=== PATIENT | female | born 1980 | race Caucasian/White ===

== ENCOUNTER 2020-06-11 14:36 | Inpatient (IN) | payer MEDICAID, SELFPAY ==
--- NOTE | ~2020-06-11 | MR_ITS ---
EXAMINATION: MR BRAIN WITHOUT AND WITH CONTRAST CLINICAL INFORMATION: Altered mental status. COMPARISON: No relevant prior imaging. TECHNIQUE: Multiplanar MR imaging of the brain was performed without and with contrast. FINDINGS: Postcontrast images reveal no abnormal mass or enhancement within the intracranial compartment. No intracranial mass effect or midline shift. Lateral and third ventricles are normal. No hydrocephalus. Midline structures including the cervicomedullary junction are normal. No acute bone marrow signal changes. There is no acute territorial infarct. No pathological magnetic susceptibility artifact. Intracranial vascular flow voids are maintained. There is no mastoid middle ear effusion. No active paranasal sinus disease. MR/MR head/brain wo/w con IMPRESSION: Normal brain MRI.
[2020-06-11 14:57] VITALS: BP 103/58; PULSE 102; RESP 18; TEMP 36.8; O2SAT 96; BMI 30.9
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
[2020-06-11 15:22] LABS: MANUAL DIFF FLAG NO
[2020-06-11 15:23] LABS: Basophils Percent Auto 0.2 % (0-2); Hematocrit 42.4 % (37-47); Hemoglobin 14.1 g/dl (12.0-16.0); Imm Gran Abs Auto 0.05 X10*3/uL (0.00-0.03); Imm Gran Pct Auto 0.5 % (0.0-0.4); Lymphocytes Absolute Auto 1.4 X10*3/uL (1.2-4.9); Lymphocytes Percent Auto 13.6 % (20-40); Mean Corpuscular HGB Conc 33.3 g/dl (31.0-35.0); Mean Corpuscular Hemoglobin 32.3 pg (27.0-33.0); Mean Platelet Volume 10.1 fL (9.4-12.3); Monocytes Absolute Auto 0.6 X10*3/uL (0.1-1.2); Monocytes Percent Auto 5.2 % (2-11); Neutrophils Absolute Auto 8.5 X10*3/uL (2.0-8.3); Neutrophils Percent Auto 80.5 % (45-73); Platelet Count 218 X10*3/uL (160-400); Red Blood Count 4.37 X10*6/uL (4.20-5.50); Red Cell Distribution Width 13.6 % (11.0-16.0); White Blood Count 10.6 X10*3/uL (4.8-10.8)
[2020-06-11 15:47] LABS: Ethanol < 10 mg/dL
[2020-06-11 15:48] LABS: Alanine Aminotransferase 8 U/L (0-31); Alkaline Phosphatase 57 U/L (39-117); Anion Gap 13 (12-20); Aspartate Amino Transferase 8 U/L (5-31); Bilirubin Total 0.4 mg/dL (0.0-1.0); Blood Urea Nitrogen 7 mg/dL (9-16); Calcium 8.6 mg/dL (8.4-10.2); Carbon Dioxide 26 mmol/L (22-29); Chloride 104 mmol/L (96-108); Creatinine Clr Calc Pharmacy 106.5; Estimated Glomerular Filt Rate > 60; Glucose Random 129 mg/dL (60-115); Potassium 3.4 mmol/L (3.3-5.1); Sodium 140 mmol/L (135-145); Total Protein 6.5 g/dL (6.5-8.0)
[2020-06-11 16:00] VITALS: RESP 18
--- NOTE | 2020-06-11 17:06 | PC.NURSE ---
Spoke with patient's on phone, he reports patient has been throwing out her medications and refusing to take them. Pt's states patient has been telling him she doesn't want to live anymore. [phone] Mike Hernandez, .
[2020-06-11 18:00] VITALS: RESP 18
--- NOTE | 2020-06-11 20:32 | MHC.CARE ---
Addendum entered by Qian Serna LCSW 06/12/20 01:28: N unable to send clinician until morning. Crisis assessment completed by CARE team. Disposition is for inpt psych admission. Pt will be held on a Sect 12a until placement is secured. Original Note: CARE team faxed and called [facility] re: referral for crisis evaluation. No ETA at this time, likely 3rd shift. Awaiting call back from crisis coordinator re: est. time of assessment. Assessment may possibly be via telehealth.
--- NOTE | 2020-06-12 00:48 | PC.NURSE ---
Per Qian from the Care Team, pt is an inpt bedsearch. Pt noncooperative with this RN while trying to complete Med Rec. Med Rec completed with Mike over the phone. Per Mike, pt stopped all other medications bedsides the Levothyroxine and Venlafaxine. Pt refusing VS at this time, pt rolling over away from this RN to sleep. Continue to monitor, sitter at bedside.
[2020-06-12 01:13] VITALS: RESP 16
[2020-06-12 06:00] VITALS: BP 135/79; PULSE 59; RESP 16; O2SAT 94
[2020-06-12 10:11] VITALS: BP 132/68; PULSE 63; RESP 16; TEMP 37.1; O2SAT 95
[2020-06-12 13:53] VITALS: BP 117/68; PULSE 59; RESP 16; O2SAT 95
[2020-06-12 16:50] VITALS: BP 186/99; PULSE 72; TEMP 37
--- NOTE | 2020-06-12 16:53 | MHC.CARE ---
CARE Team spoke to patient in ED Bed Bearden 6, she was unable to engage in a conversation about the plan for inpatient hospitalization, stated I only wanted to shave my head. Offered explanation and opportunity to sign a CV, she would not remove the covers from her head, was crying and swearing. Dr. Hines signed Section 12B, security and ED staff were able to coax patient into a wheelchair for transport to , she remained under blankets and was transported to the unit without issue.
[2020-06-12 19:51] VITALS: BMI 26.8
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
[2020-06-12 21:41] VITALS: BP 130/78; PULSE 60
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
[2020-06-13 06:25] VITALS: BP 105/66; PULSE 57; RESP 16; TEMP 35.9; O2SAT 95
[2020-06-13] MEDS: Levothyroxine Sodium 75 MCG TABLET PO (09:02)
--- NOTE | 2020-06-13 10:35 | PC.NURSE ---
ASKED PT IF SHE WAS A SMOKER, PT REFUSED TO ANSWER. NO NICOTINE REPLACEMENT NEEDED.
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
[2020-06-13] MEDS: risperiDONE 1 MG TABLET PO ×2 (14:40→21:09)
[2020-06-13] MEDS: LORazepam 1 MG TABLET PO (14:40)
[2020-06-13 18:00] VITALS: BP 134/98; PULSE 83; RESP 18; TEMP 36.1
[2020-06-13] MEDS: LORazepam 0.5 MG TABLET PO (21:09)
[2020-06-14 06:10] VITALS: BP 101/59; PULSE 63; RESP 16; TEMP 36.6; O2SAT 97
[2020-06-14] MEDS: risperiDONE 1 MG TABLET PO ×2 (08:44→21:14)
[2020-06-14] MEDS: Levothyroxine Sodium 75 MCG TABLET PO (08:44)
[2020-06-14] MEDS: LORazepam 0.5 MG TABLET PO ×2 (08:44→21:14)
[2020-06-14 10:53] LABS: Glucose Urine UA NEG (NEG); Leukocyte Esterase Urine NEG (NEG); Nitrite Urine NEG (NEG); Specific Gravity - Urine 1.025 (1.005-1.025); Urine Blood TRACE (NEG); Urine Ketones >=80 MG/DL (NEG); Urine Protein NEG (NEG-TRACE)
[2020-06-14 10:55] LABS: UPreg QC Valid YES; Urine Pregnancy NEGATIVE (NEGATIVE)
[2020-06-14 11:00] LABS: Appearance Urine HAZY; Color Urine YELLOW
[2020-06-14 11:11] LABS: Mucus Urine 2+ /LPF; RBC Urine 0-2 /HPF (0); Squamous Epithelial Cell Urine 2+ /LPF; WBC Urine 0-2 /HPF (0-4)
[2020-06-14 11:14] LABS: Amphetamine Screen Urine Not Detected (Not Detect); Barbiturates, Urine Not Detected (Not Detect); Benzodiazepines Screen Urine Not Detected (Not Detect); Cannabinoid Screen Urine POSITIVE (Not Detect); Cocaine Screen Urine Not Detected (Not Detect); Opiate Screen Urine Not Detected (Not Detect); Phencyclidine Screen Urine Not Detected (Not Detect)
--- NOTE | 2020-06-14 13:56 | HO.PSYCHPN ---
Subjective Subjective Date of Service: 06/15/20 Reason For Visit: SI Subjective Notes: Section 12B Interim History: Pt presents less guarded but continues to report that she thinks there are cameras and she may be being monitored. She reports hearing less voices when asked about what they say she does not respond and appears somewhat guarded. She reports medication may be helpful for anxiety. Collateral information from [employer] regarding remicade causing psychosis- pt last dose was august 2019. Pt had LP, MRI at [facility] in February 2020- LP included paraneoplastic panel/other immune related conditions which were all negative. Dr. Fishman recommeded repeat MRI, repeat inflammatory markers such as ESR, CRP as remicade can cause in rare cases demyelination. Medication Compliance: Intermittent Side effects from medications: No Attending Groups: No Review of Systems Review of Systems Constitutional: No Weight loss, No Fever, No Chills, No Night Sweats, No Fatigue, No Malaise ENT/Mouth: No Hearing loss, No Ear Pain, No Nasal Congestion, No Sinus Pain, No Hoarseness, No sore throat, No Rhinorrhea, No Swallowing Difficulty Eyes: No Eye Pain, No Swelling, No Redness, No Foreign Body, No Discharge, No Vision Changes Cardiovascular: No Chest Pain, No SOB, No Dyspnea on Exertion, No Orthopnea, No Edema, No Palpitations Respiratory: No Cough, No Sputum, No Wheezing, No Smoke Exposure, No Dyspnea Gastrointestinal: No Nausea, No Vomiting, No Diarrhea, No Constipation, No abdominal Pain, No Hematochezia, No Melena Genitourinary: no irregular bleeding, No Dysuria, No Urinary Frequency, No Hematuria, No Urinary Incontinence, No Urgency, No Flank Pain, No Urinary Flow Changes, No Hesitancy Musculoskeletal: No joint pain, No Myalgias, No Joint Swelling Skin: No Skin Lesions, No rash Neuro: No Weakness, No Numbness, No Paresthesias, No Loss of Consciousness, No Dizziness, No Headache Psych: As noted per HPI Heme/Lymph: No Bruising, No Bleeding,No Lymphadenopathy Endocrine: No Polyuria, No Polydipsia, No Temperature Intolerance Yes Unobtainable due to mental status Mental Status Exam Mental Status Exam Narrative: Appearance: wearing hospital gown, disheveled, covered faced with blanket Behavior: uncooperative, guarded Psychomotor: retardation noted Speech: unable to assess TP: unable to assess TC: reports paranoia related to cameras, reported SI Mood: tired Affect:guarded SI:passive HI:none AH/VH:reports hearing voices Delusions:paranoid delusions related to thinking that there are cameras, people following her Insight/judgment:impaired x 2. Memory/cog: alert, unable to assess orientation. impaired secondary to psychiatric symptoms. Diagnostics Vital Signs (24Hr): Vital Signs - 24 hr 06/14/20 16:37 06/15/20 06:10 Temperature 98.4 F 97.7 F Pulse Rate 119 H 80 Respiratory Rate 16 16 Blood Pressure 120/79 102/61 Pulse Oximetry 93 92 Body Mass Index 25.5 Labs Results: 06/11/20 15:15 06/11/20 15:15 Labs: Laboratory Results - last 48 hr 06/14/20 06/14/20 06/14/20 10:35 10:35 10:35 ESR Estimat Average Glucose Hemoglobin A1c % Triglycerides Cholesterol LDL Cholesterol, Calc HDL Cholesterol Vitamin B12 Folate TSH Free T4 Urine Color YELLOW Urine Appearance HAZY Urine pH 6.0 Ur Specific [place] 1.025 Urine Protein NEG Urine Glucose (UA) NEG Urine Ketones >=80 Urine Blood TRACE Urine Nitrite NEG Ur Leukocyte Esterase NEG Urine RBC 0-2 Urine WBC 0-2 Ur Squamous Epith Cells 2+ Urine Bacteria NONE Urine Mucus 2+ Urine Test NEGATIVE Urine Opiates Screen Not Detected Ur Barbiturates Screen Not Detected Ur Phencyclidine Scrn Not Detected Ur Amphetamines Screen Not Detected U Benzodiazepines Scrn Not Detected Urine Cocaine Screen Not Detected U Marijuana (THC) Screen POSITIVE H 06/15/20 06/15/20 06/15/20 08:04 08:04 08:04 ESR Estimat Average Glucose 100 Hemoglobin A1c % 5.1 Triglycerides 141 Cholesterol 312 LDL Cholesterol, Calc 243 HDL Cholesterol 41 Vitamin B12 263 Folate 8.1 TSH 97.80 H Free T4 0.64 L Urine Color Urine Appearance Urine pH Ur Specific [place] Urine Protein Urine Glucose (UA) Urine Ketones Urine Blood Urine Nitrite Ur Leukocyte Esterase Urine RBC Urine WBC Ur Squamous Epith Cells Urine Bacteria Urine Mucus Urine Test Urine Opiates Screen Ur Barbiturates Screen Ur Phencyclidine Scrn Ur Amphetamines Screen U Benzodiazepines Scrn Urine Cocaine Screen U Marijuana (THC) Screen 06/15/20 10:51 ESR 18 Estimat Average Glucose Hemoglobin A1c % Triglycerides Cholesterol LDL Cholesterol, Calc HDL Cholesterol Vitamin B12 Folate TSH Free T4 Urine Color Urine Appearance Urine pH Ur Specific [place] Urine Protein Urine Glucose (UA) Urine Ketones Urine Blood Urine Nitrite Ur Leukocyte Esterase Urine RBC Urine WBC Ur Squamous Epith Cells Urine Bacteria Urine Mucus Urine Test Urine Opiates Screen Ur Barbiturates Screen Ur Phencyclidine Scrn Ur Amphetamines Screen U Benzodiazepines Scrn Urine Cocaine Screen U Marijuana (THC) Screen Imaging Radiology Impressions: ITS Impressions Brain MRI 06/14/20 20:15 IMPRESSION: Normal brain MRI. Medications Medications Current Medications Generic Name Dose Route Start Last Admin Trade Name Freq PRN Reason Stop Dose Admin Acetaminophen 650 mg 06/12/20 14:40 Acetaminophen 325 Mg Tablet PO Q6H PRN Headache/Pain Mild Scale (1-3) Al Hydroxide/Mg Hydroxide 30 ml 06/12/20 14:40 Magnesium Hydrox/Alum Hydrox 30 Ml Oral.Susp PO Q6H PRN Heartburn/Nausea Hydroxyzine HCl 25 mg 06/12/20 14:40 Hydroxyzine Hcl 25 Mg Tablet PO BEDTIME PRN Anxiety Levothyroxine Sodium 75 mcg 06/13/20 09:00 06/15/20 09:12 Levothyroxine Sodium 75 Mcg Tablet PO 75 mcg DAILY SOTERO Administration Lorazepam 1 mg 06/13/20 14:26 06/13/20 14:40 Lorazepam 1 Mg Tablet PO 1 mg Q6H PRN Administration Anxiety Lorazepam 0.5 mg 06/13/20 21:00 06/15/20 09:12 Lorazepam 0.5 Mg Tablet PO 0.5 mg BID SOTERO Administration Magnesium Hydroxide 30 ml 06/12/20 14:40 Milk Of Magnesia 30 Ml Oral.Susp PO DAILY PRN Constipation Risperidone 1 mg 06/13/20 14:25 06/15/20 09:12 Risperidone 1 Mg Tablet PO 1 mg BID SOTERO Administration Trazodone HCl 50 mg 06/12/20 14:40 Trazodone Hcl 50 Mg Tablet PO BEDTIME PRN Insomnia Allergies Allergies Allergy/AdvReac Type Severity Reaction Status Date / Time No Known Allergies Allergy Verified 06/11/20 15:00 Assessment & Plan Assessment & Plan (1) Psychosis: Status: Acute Code(s): F29 - Unspecified psychosis not due to a substance or known physiological condition Assessment and Plan: Mrs. Hernandez is a 40 year-old woman with no prior hx of psychosis, presenting increasingly more paranoid, disorganized, agitated in past weeks. Will rule out medical causes, although note that pt had extensive work up at [facility] in February 2020 including LP- CSF testing for paraneoplastic syndromes and other immune related conditions, MRI (unremarkable). Pt has been on remicade (TNF-alpha aman) since last year, unclear when her last dose was and there have been cases of psychosis related to this medication even months after last dose. Will coordinate care with pt's OP Rheumathologist and PCP. 1. continue risperidone 1mg po BID 2. Ativan 1mg po qhs. Greater than 50% of the session was spent on counseling and/or coordination of care Reason for contiued inpatient stay Substantial Risk for: harm to self and inability to function
[2020-06-14 16:37] VITALS: BP 120/79; PULSE 119; RESP 16; TEMP 36.9; O2SAT 93
[2020-06-15 06:10] VITALS: BP 102/61; PULSE 80; RESP 16; TEMP 36.5; O2SAT 92
[2020-06-15 07:00] VITALS: BMI 25.5
[2020-06-15 08:30] LABS: Estimated Average Glucose 100 mg/dL; Hemoglobin A1c % 5.1 %
[2020-06-15 08:49] LABS: Cholesterol 312 mg/dL; HDL Cholesterol 41 mg/dL; LDL Cholesterol Calculated 243 mg/dl; Triglycerides 141 mg/dL
[2020-06-15] MEDS: risperiDONE 1 MG TABLET PO (09:12)
[2020-06-15] MEDS: LORazepam 0.5 MG TABLET PO ×2 (09:12→20:26)
[2020-06-15] MEDS: Levothyroxine Sodium 75 MCG TABLET PO (09:12)
[2020-06-15 09:23] LABS: Folate 8.1 ng/mL (> or = 4.0); Vitamin B12 263 pg/mL (200-900)
[2020-06-15 09:41] LABS: Free T4 (Free Thyroxine) 0.64 ng/dL (0.71-1.85)
[2020-06-15 12:27] LABS: Erythrocyte Sedimentation Rate 18 MM/HR (0-20)
--- NOTE | 2020-06-15 14:01 | P.PNPSI_ITS ---
Subjective Subjective Date of Service: 06/15/20 Reason For Visit: SI Interim History: Pt continues to present as guarded. Slightly less paranoid but significant suspiciousness noted. Pt offered to sign CV but declined. She continues to report AH. She intermittently take medication for hypothyroid, which shows that TSH is elevated as pt has refused to take it. SHe denied SI/HI. However, she was very tearful, unable to explain this chief underwriter reason for tearfulness and she walked out of room. Collateral information from [employer] Out [employer] regarding remicade causing psychosis- pt last dose was august 2019. Pt had LP, MRI at [facility] in February 2020- LP included paraneoplastic panel/other immune related conditions which were all negative. Dr. Fishman recommeded repeat MRI, repeat inflammatory markers such as ESR, CRP as remicade can cause in rare cases demyelination. Review of Systems Review of Systems Constitutional: No Weight loss, No Fever, No Chills, No Night Sweats, No Fatigue, No Malaise ENT/Mouth: No Hearing loss, No Ear Pain, No Nasal Congestion, No Sinus Pain, No Hoarseness, No sore throat, No Rhinorrhea, No Swallowing Difficulty Eyes: No Eye Pain, No Swelling, No Redness, No Foreign Body, No Discharge, No Vision Changes Cardiovascular: No Chest Pain, No SOB, No Dyspnea on Exertion, No Orthopnea, No Edema, No Palpitations Respiratory: No Cough, No Sputum, No Wheezing, No Smoke Exposure, No Dyspnea Gastrointestinal: No Nausea, No Vomiting, No Diarrhea, No Constipation, No abdominal Pain, No Hematochezia, No Melena Genitourinary: no irregular bleeding, No Dysuria, No Urinary Frequency, No Hematuria, No Urinary Incontinence, No Urgency, No Flank Pain, No Urinary Flow Changes, No Hesitancy Musculoskeletal: No joint pain, No Myalgias, No Joint Swelling Skin: No Skin Lesions, No rash Neuro: No Weakness, No Numbness, No Paresthesias, No Loss of Consciousness, No Dizziness, No Headache Psych: As noted per HPI Heme/Lymph: No Bruising, No Bleeding,No Lymphadenopathy Endocrine: No Polyuria, No Polydipsia, No Temperature Intolerance Yes Unobtainable due to mental status Mental Status Exam Mental Status Exam Narrative: Appearance: wearing hospital gown, disheveled, covered faced with blanket Behavior: uncooperative, guarded Psychomotor: retardation noted Speech: unable to assess TP: unable to assess TC: reports paranoia related to cameras, reported SI Mood: tired Affect:guarded SI:passive HI:none AH/VH:reports hearing voices Delusions:paranoid delusions related to thinking that there are cameras, people following her Insight/judgment:impaired x 2. Memory/cog: alert, unable to assess orientation. impaired secondary to psychiatric symptoms. Diagnostics Vital Signs (24Hr): Vital Signs - 24 hr 06/14/20 16:37 06/15/20 06:10 Temperature 98.4 F 97.7 F Pulse Rate 119 H 80 Respiratory Rate 16 16 Blood Pressure 120/79 102/61 Pulse Oximetry 93 92 Body Mass Index 25.5 Labs Results: 06/11/20 15:15 06/11/20 15:15 Labs: Laboratory Results - last 48 hr 06/14/20 06/14/20 06/14/20 10:35 10:35 10:35 ESR Estimat Average Glucose Hemoglobin A1c % Triglycerides Cholesterol LDL Cholesterol, Calc HDL Cholesterol Vitamin B12 Folate TSH Free T4 Urine Color YELLOW Urine Appearance HAZY Urine pH 6.0 Ur Specific [place] 1.025 Urine Protein NEG Urine Glucose (UA) NEG Urine Ketones >=80 Urine Blood TRACE Urine Nitrite NEG Ur Leukocyte Esterase NEG Urine RBC 0-2 Urine WBC 0-2 Ur Squamous Epith Cells 2+ Urine Bacteria NONE Urine Mucus 2+ Urine Test NEGATIVE Urine Opiates Screen Not Detected Ur Barbiturates Screen Not Detected Ur Phencyclidine Scrn Not Detected Ur Amphetamines Screen Not Detected U Benzodiazepines Scrn Not Detected Urine Cocaine Screen Not Detected U Marijuana (THC) Screen POSITIVE H 06/15/20 06/15/20 06/15/20 08:04 08:04 08:04 ESR Estimat Average Glucose 100 Hemoglobin A1c % 5.1 Triglycerides 141 Cholesterol 312 LDL Cholesterol, Calc 243 HDL Cholesterol 41 Vitamin B12 263 Folate 8.1 TSH 97.80 H Free T4 0.64 L Urine Color Urine Appearance Urine pH Ur Specific [place] Urine Protein Urine Glucose (UA) Urine Ketones Urine Blood Urine Nitrite Ur Leukocyte Esterase Urine RBC Urine WBC Ur Squamous Epith Cells Urine Bacteria Urine Mucus Urine Test Urine Opiates Screen Ur Barbiturates Screen Ur Phencyclidine Scrn Ur Amphetamines Screen U Benzodiazepines Scrn Urine Cocaine Screen U Marijuana (THC) Screen 06/15/20 10:51 ESR 18 Estimat Average Glucose Hemoglobin A1c % Triglycerides Cholesterol LDL Cholesterol, Calc HDL Cholesterol Vitamin B12 Folate TSH Free T4 Urine Color Urine Appearance Urine pH Ur Specific [place] Urine Protein Urine Glucose (UA) Urine Ketones Urine Blood Urine Nitrite Ur Leukocyte Esterase Urine RBC Urine WBC Ur Squamous Epith Cells Urine Bacteria Urine Mucus Urine Test Urine Opiates Screen Ur Barbiturates Screen Ur Phencyclidine Scrn Ur Amphetamines Screen U Benzodiazepines Scrn Urine Cocaine Screen U Marijuana (THC) Screen Imaging Radiology Impressions: ITS Impressions Brain MRI 06/14/20 20:15 IMPRESSION: Normal brain MRI. Medications Medications Current Medications Generic Name Dose Route Start Last Admin Trade Name Freq PRN Reason Stop Dose Admin Acetaminophen 650 mg 06/12/20 14:40 Acetaminophen 325 Mg Tablet PO Q6H PRN Headache/Pain Mild Scale (1-3) Al Hydroxide/Mg Hydroxide 30 ml 06/12/20 14:40 Magnesium Hydrox/Alum Hydrox 30 Ml Oral.Susp PO Q6H PRN Heartburn/Nausea Hydroxyzine HCl 25 mg 06/12/20 14:40 Hydroxyzine Hcl 25 Mg Tablet PO BEDTIME PRN Anxiety Levothyroxine Sodium 75 mcg 06/13/20 09:00 06/15/20 09:12 Levothyroxine Sodium 75 Mcg Tablet PO 75 mcg DAILY SOTERO Administration Lorazepam 1 mg 06/13/20 14:26 06/13/20 14:40 Lorazepam 1 Mg Tablet PO 1 mg Q6H PRN Administration Anxiety Lorazepam 0.5 mg 06/13/20 21:00 06/15/20 09:12 Lorazepam 0.5 Mg Tablet PO 0.5 mg BID SOTERO Administration Magnesium Hydroxide 30 ml 06/12/20 14:40 Milk Of Magnesia 30 Ml Oral.Susp PO DAILY PRN Constipation Risperidone 1 mg 06/13/20 14:25 06/15/20 09:12 Risperidone 1 Mg Tablet PO 1 mg BID SOTERO Administration Trazodone HCl 50 mg 06/12/20 14:40 Trazodone Hcl 50 Mg Tablet PO BEDTIME PRN Insomnia Allergies Allergies Allergy/AdvReac Type Severity Reaction Status Date / Time No Known Allergies Allergy Verified 06/11/20 15:00 Assessment & Plan Assessment & Plan (1) Psychosis: Status: Acute Code(s): F29 - Unspecified psychosis not due to a substance or known physiological condition Assessment and Plan: Mrs. Hernandez is a 40 year-old woman with no prior hx of psychosis, present ing increasingly more paranoid, disorganized, agitated in past weeks. Will rule out medical causes, although note that pt had extensive work up at [facility] in February 2020 including LP- CSF testing for paraneoplastic syndromes and other immune related conditions, MRI (unremarkable). Pt has been on remicade (TNF-alpha aman) since last year, unclear when her last dose was and there have been cases of psychosis related to this medication even months after last dose. Will coordinate care with pt's OP Rheumathologist and PCP. 1. continue risperidone 1mg po BID 2. Ativan 1mg po qhs. Greater than 50% of the session was spent on counseling and/or coordination of care Reason for contiued inpatient stay Substantial Risk for: inability to function
[2020-06-15 18:38] VITALS: BP 122/77; PULSE 82; TEMP 36.8
[2020-06-15] MEDS: risperiDONE 2 MG TABLET PO (20:26)
[2020-06-16 06:35] VITALS: BP 85/50; PULSE 65; RESP 16; TEMP 36.4; O2SAT 93
[2020-06-16] MEDS: Levothyroxine Sodium 75 MCG TABLET PO (08:42)
[2020-06-16] MEDS: LORazepam 0.5 MG TABLET PO ×2 (08:42→20:14)
[2020-06-16] MEDS: risperiDONE 2 MG TABLET PO ×2 (08:42→20:14)
[2020-06-16 10:18] VITALS: BP 80/52; PULSE 77
--- NOTE | 2020-06-16 13:40 | P.CNNE_ITS ---
History of Present Illness Data of Consult Service Date: 06/16/20 Primary Care Provider: Unknown Physician HPI Reason for consult: Mental status changes, depression and hallucinations with some psychotic fe This is a 40-year-old woman with the psychiatric admission about 23 years ago with depression, who was recently admitted with psychosis to [facility] and had a complete turn neurological workup including a normal MRI lumbar puncture an autoimmune panel. I was asked to evaluate her because of her admission for depression and mental changes again.She was diagnosed with hypothyroidism in her early 20s and claims to be taking a medication properly, however, her T4 levels are very very low and her TSH is extremely elevated. Review of Systems Eyes: Eyes: Reports no additional eye complaints ENT: Reports system reviewed and no additional complaints, except as documented and Reports Normal hearing present Cardiovascular: Cardiovascular: Reports no additional cardiovascular complaints Respiratory: Respiratory: Reports no additional respiratory complaints Gastrointestinal: Gastrointestinal: Reports no additional gastrointestinal complaints Musculoskeletal: Musculoskeletal: Reports no additional musculoskeletal complaints Integumentary/Breasts: Skin/Breast: Reports system reviewed and no additional complaints, except as docu Neurologic: Reports as per HPI and Reports Normal hearing present Psychiatric: Psychiatric: Reports as per HPI Endocrine: Endocrine: Reports no additional endocrine complaints Hematologic/Lymphatic: Hematologic/Lymphatic: Reports no additional hematologic/lymphatic complaints Allergic/Immunologic: Allergic/Immunologic: Reports no additional allergic/immunologic complaints [facility] Past Medical History Medical History (Updated 06/16/20 @ 13:44 by Raymond Quezada MD) Depression Hypothyroidism Social History Social History Household Members: Spouse and Family Housing: House Unable to assess alcohol history related to: Refusing to respond Alcohol intake: unknown Smoking Status: Former smoker Smoked in Last 30 Days: No Use of substances other than those prescribed or required for medical reasons: Unknown Currently Displaying Signs/Symptoms of Drug Intoxication Withdrawal: No Have you been hit, kicked, punched, or otherwise hurt by someone within the past year? If so, by whom?: No Spiritual Healthcare Practices: unknown, patient would not answer Nondenominational Healthcare Practices: unknown, patient would not answer Cultural Healthcare Practices: unknown, patient would not answer Advance Directives: No Advance Directives Information Provided: Yes Advance Directives on File: No Do you have thoughts of harming others: None Do you have a plan to hurt others: No Plan Recently lost weight without trying: Unsure service: No Sexual orientation: Straight/Heterosexual Meds Allergies Allergy/AdvReac Type Severity Reaction Status Date / Time No Known Allergies Allergy Verified 06/11/20 15:00 Active Medications: Current Medications Generic Name Dose Route Start Last Admin Trade Name Freq PRN Reason Stop Dose Admin Acetaminophen 650 mg 06/12/20 14:40 Acetaminophen 325 Mg Tablet PO Q6H PRN Headache/Pain Mild Scale (1-3) Al Hydroxide/Mg Hydroxide 30 ml 06/12/20 14:40 Magnesium Hydrox/Alum Hydrox 30 Ml Oral.Susp PO Q6H PRN Heartburn/Nausea Hydroxyzine HCl 25 mg 06/12/20 14:40 Hydroxyzine Hcl 25 Mg Tablet PO BEDTIME PRN Anxiety Levothyroxine Sodium 75 mcg 06/13/20 09:00 06/16/20 08:42 Levothyroxine Sodium 75 Mcg Tablet PO 75 mcg DAILY SOTERO Administration Lorazepam 1 mg 06/13/20 14:26 06/13/20 14:40 Lorazepam 1 Mg Tablet PO 1 mg Q6H PRN Administration Anxiety Lorazepam 0.5 mg 06/13/20 21:00 06/16/20 08:42 Lorazepam 0.5 Mg Tablet PO 0.5 mg BID SOTERO Administration Magnesium Hydroxide 30 ml 06/12/20 14:40 Milk Of Magnesia 30 Ml Oral.Susp PO DAILY PRN Constipation Risperidone 2 mg 06/15/20 21:00 06/16/20 08:42 Risperidone 2 Mg Tablet PO 2 mg BID SOTERO Administration Trazodone HCl 50 mg 06/12/20 14:40 Trazodone Hcl 50 Mg Tablet PO BEDTIME PRN Insomnia Home Medications Medication Instructions Recorded Confirmed Last Taken Type levothyroxine 75 mcg PO DAILY 06/12/20 06/12/20 06/11/20 08:00 History venlafaxine 225 mg PO DAILY 06/12/20 06/12/20 Unknown History Physical Exam Vital Signs: Vital Signs: Last Vital Signs Temp 97.6 F 06/16/20 06:35 Pulse 77 06/16/20 10:18 Resp 16 06/16/20 06:35 BP 80/52 L 06/16/20 10:18 Pulse Ox 93 06/16/20 06:35 Body Mass Index 25.5 Const: General: cooperative, comfortable, no acute distress, well developed, alert and awake Nutritional Appearance: well nourished Orientation/consciousness: oriented to person, oriented to place and oriented to time Limitations: no limitations HENMT: Head: Yes normal to inspection, Yes normocephalic and Yes atraumatic Ears: hearing grossly normal bilaterally General nose exam: Normal external nose present Face and sinus: Yes normal facial exam Mouth: Normal oral and palatal mucosa present Eyes: General: appearance normal, both eyes and all related structures Visual New: normal visual new by confrontation Alignment and Position: alignment normal Periorbital: periorbital findings normal Eyelids: Yes eyelids normal Conjunctivae: conjunctivae normal Sclerae: sclerae normal Corneas: corneas normal Pupils: Equal, round and reactive pupils present and Pupil accommodation reflex normal EOM: EOMs intact bilaterally Direct Ophthalmoscopy: normal light reflex Neck: Neck: Yes normal visual inspection, Yes full ROM and Yes no meningeal si gns Thyroid: Thyroid normal Carotids: normal carotid upstroke and bounding pulses Chest: Chest palpation & inspection: normal inspection of the chest Resp: Effort & Inspection: normal respiratory effort Auscultation: clear to auscultation bilaterally Cardio: Rate: regular rate Rhythm: regular rhythm Heart sounds: S1 normal heart sound present and S2 normal heart sound present Peripheral pulses: Peripheral pulses 2+ throughout GI: Inspection: Yes normal to inspection Percussion: Yes normal to percussion Auscultation: normal bowel sounds Rectal Exam - Female: deferred Back/Spine/Pelvis: Cervical Spine: normal cervical lordosis and cervical ROM normal Thoracic/Lumbar Spine: thoracic and lumbar spine normal to inspection Skin: General skin exam: no rashes or lesions noted Neuro: General: oriented to person, oriented to place, oriented to time, gait normal, tone normal, moves all extremities, Normal light touch and pain sensation, no meningeal signs, no focal motor deficits, CN's II-XI intact b ilaterally, normal sensation to monofilament and deep tendon reflexes 2+ bilaterally Cranial nerves: Yes CN's II-XII intact bilaterally, Yes Equal, round and reactive pupils present, Yes Bilaterally intact EOM present, Yes Nystagmus not present, Yes Normal facial strength present, Yes Midline tongue present, Yes Normal gag reflex present, Yes Symmetric palate elevation present, Yes Normal hearing present and Yes Ability to bilaterally rotate head present Cognition (Neuro): normal cognition Speech: Other speech findings present (Neuro) Gait exam (Neuro): Normal gait present Motor exam (neuro): 5/5 motor strength present throughout, Pronator motor function not present, no tremor noted, no asterixis, Motor fasciculations not present, Normal motor muscle tone present throughout and Motor abnormalities not present Sensory Exam: Bilaterally intact graphesthesia Deep tendon reflexes (DTR's): Right triceps reflex intensity grade: 2+, Left triceps reflex intensity grade: 2+, Rt Biceps (C5, C6): 2+, Left biceps reflex intensity grade: 2+, Right brachioradia lis reflex intensity grade: 2+, Left brachioradialis reflex intensity grade: 2+, Right patellar reflex intensity grade: 2+, Left patellar reflex intensity grade: 2+, Right ankle reflex intensity grade: 2+ and Left ankle reflex intensity grade: 2+ Plantar Reflex Responses: downgoing: right, left and bilateral Coordination: [id number] test normal, [id number] test normal, tandem gait normal and Romberg test negative Pupils: Normal pupillary teja ctivity/response: bilateral Extrem: General: Yes normal to inspection, Yes normal exam except as noted and Yes no pedal edema Psych: Appearance: grossly normal Mental Status: mental status grossly normal Speech and movement: Normal speech and movement present and Clear speech present Affect: normal affect Attitude: cooperative Thought process: Normal thought process present Results Labs CBC & Chem 7: 06/11/20 15:15 06/11/20 15:15 Assessment and Plan (1) Hypothyroidism: Problem details: 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 No evidence of primary neurological process with completely normal exam and followup MRI as well as previous workup at [facility] 2 months ago Status: Acute I would recommend checking her TPOantibodies for Carter's disease. I would increase her levothyroxine 200 ?g a day and do a followup TSH and T4 in 6 weeks and adjust the dose accordingly. No further neurological workup is necessary (2) Depression: Status: Acute As being treated. (3) Psychosis: Problem details: Probably related to hypothyroidism Status: Acute Treatment of hypothyroidism
[2020-06-16 13:56] LABS: CRP High Sensitivity 7.1 mg/L
--- NOTE | 2020-06-16 15:00 | P.PNPSI_ITS ---
Subjective Subjective Date of Service: 06/16/20 Reason For Visit: SI Interim History: Pt continues to present as guarded and paranoid. She reports less AH, asking to be discharged soon, with limited insight into need for treatment. She reports sleeping fairly well. She has been visible in the unit. She denies SI/HI. She reports eating well. She appears not fully forthcoming in terms of paranoid symptoms. Review of Systems Review of Systems Constitutional: No Weight loss, No Fever, No Chills, No Night Sweats, No Fatigue, No Malaise ENT/Mouth: No Hearing loss, No Ear Pain, No Nasal Congestion, No Sinus Pain, No Hoarseness, No sore throat, No Rhinorrhea, No Swallowing Difficulty Eyes: No Eye Pain, No Swelling, No Redness, No Foreign Body, No Discharge, No Vision Changes Cardiovascular: No Chest Pain, No SOB, No Dyspnea on Exertion, No Orthopnea, No Edema, No Palpitations Respiratory: No Cough, No Sputum, No Wheezing, No Smoke Exposure, No Dyspnea Gastrointestinal: No Nausea, No Vomiting, No Diarrhea, No Constipation, No abdominal Pain, No Hematochezia, No Melena Genitourinary: no irregular bleeding, No Dysuria, No Urinary Frequency, No Hematuria, No Urinary Incontinence, No Urgency, No Flank Pain, No Urinary Flow Changes, No Hesitancy Musculoskeletal: No joint pain, No Myalgias, No Joint Swelling Skin: No Skin Lesions, No rash Neuro: No Weakness, No Numbness, No Paresthesias, No Loss of Consciousness, No Dizziness, No Headache Psych: As noted per HPI Heme/Lymph: No Bruising, No Bleeding,No Lymphadenopathy Endocrine: No Polyuria, No Polydipsia, No Temperature Intolerance Yes Unobtainable due to mental status Eyes: Reports no additional eye complaints Reports system reviewed and no additional complaints, except as documented and Reports Normal hearing present Cardiovascular: Reports no additional cardiovascular complaints Respiratory: Reports no additional respiratory complaints Gastrointestinal: Reports no additional gastrointestinal complaints Musculoskeletal: Reports no additional musculoskeletal complaints Skin/Breast: Reports system reviewed and no additional complaints, except as docu Reports as per HPI and Reports Normal hearing present Psychiatric: Reports as per HPI Endocrine: Reports no additional endocrine complaints Hematologic/Lymphatic: Reports no additional hematologic/lymphatic complaints Allergic/Immunologic: Reports no additional allergic/immunologic complaints Mental Status Exam Mental Status Exam Narrative: Appearance: wearing hospital gown, disheveled, covered faced with blanket Behavior: uncooperative, guarded Psychomotor: retardation noted Speech: unable to assess TP: unable to assess TC: reports paranoia related to cameras, reported SI Mood: tired Affect:guarded SI:passive HI:none AH/VH:reports hearing voices Delusions:paranoid delusions related to thinking that there are cameras, people following her Insight/judgment:impaired x 2. Memory/cog: alert, unable to assess orientation. impaired secondary to psychiatric symptoms. Diagnostics Vital Signs (24Hr): Vital Signs - 24 hr 06/15/20 18:38 06/16/20 06:35 06/16/20 10:18 Temperature 98.3 F 97.6 F Pulse Rate 82 65 77 Respiratory Rate 16 Blood Pressure 122/77 85/50 L 80/52 L Pulse Oximetry 93 Body Mass Index 25.5 Labs Results: 06/11/20 15:15 06/11/20 15:15 Labs: Laboratory Results - last 48 hr 06/15/20 06/15/20 06/15/20 08:04 08:04 08:04 ESR Estimat Average Glucose 100 Hemoglobin A1c % 5.1 C-React Prot High Sens Triglycerides 141 Cholesterol 312 LDL Cholesterol, Calc 243 HDL Cholesterol 41 Vitamin B12 263 Folate 8.1 TSH 97.80 H Free T4 0.64 L 06/15/20 06/15/20 10:51 10:51 ESR 18 Estimat Average Glucose Hemoglobin A1c % C-React Prot High Sens 7.1 H Triglycerides Cholesterol LDL Cholesterol, Calc HDL Cholesterol Vitamin B12 Folate TSH Free T4 Imaging Radiology Impressions: ITS Impressions Brain MRI 06/14/20 20:15 IMPRESSION: Normal brain MRI. Medications Medications Current Medications Generic Name Dose Route Start Last Admin Trade Name Freq PRN Reason Stop Dose Admin Acetaminophen 650 mg 06/12/20 14:40 Acetaminophen 325 Mg Tablet PO Q6H PRN Headache/Pain Mild Scale (1-3) Al Hydroxide/Mg Hydroxide 30 ml 06/12/20 14:40 Magnesium Hydrox/Alum Hydrox 30 Ml Oral.Susp PO Q6H PRN Heartburn/Nausea Hydroxyzine HCl 25 mg 06/12/20 14:40 Hydroxyzine Hcl 25 Mg Tablet PO BEDTIME PRN Anxiety Levothyroxine Sodium 100 mcg 06/17/20 09:00 Levothyroxine Sodium 75 Mcg Tablet PO DAILY SOTERO Lorazepam 1 mg 06/13/20 14:26 06/13/20 14:40 Lorazepam 1 Mg Tablet PO 1 mg Q6H PRN Administration Anxiety Lorazepam 0.5 mg 06/13/20 21:00 06/16/20 08:42 Lorazepam 0.5 Mg Tablet PO 0.5 mg BID SOTERO Administration Magnesium Hydroxide 30 ml 06/12/20 14:40 Milk Of Magnesia 30 Ml Oral.Susp PO DAILY PRN Constipation Risperidone 2 mg 06/15/20 21:00 06/16/20 08:42 Risperidone 2 Mg Tablet PO 2 mg BID SOTERO Administration Trazodone HCl 50 mg 06/12/20 14:40 Trazodone Hcl 50 Mg Tablet PO BEDTIME PRN Insomnia Allergies Allergies Allergy/AdvReac Type Severity Reaction Status Date / Time No Known Allergies Allergy Verified 06/11/20 15:00 Assessment & Plan Assessment & Plan (1) Hypothyroidism: Status: Acute Code(s): E03.9 - Hypothyroidism, unspecified Assessment and Plan: I would recommend checking her TPOantibodies for Carter's disease. I would i ncrease her levothyroxine 200 ?g a day and do a followup TSH and T4 in 6 weeks and adjust the dose accordingly. No further neurological workup is necessary (2) Depression: Status: Acute Code(s): F32.9 - Major depressive disorder, single episode, unspecified Assessment and Plan: As being treated. (3) Psychosis: Status: Acute Code(s): F29 - Unspecified psychosis not due to a substance or known physiological condition Assessment and Plan: Treatment of hypothyroidism Greater than 50% of the session was spent on counseling and/or coordination of care Reason for contiued inpatient stay Substantial Risk for: inability to function
[2020-06-16 18:00] VITALS: BP 115/78; PULSE 80; TEMP 36.1
[2020-06-17 06:00] VITALS: BP 100/65; PULSE 62; RESP 18; TEMP 36.4; O2SAT 96
[2020-06-17] MEDS: Levothyroxine Sodium 75 MCG TABLET 100 MCG PO (09:46)
[2020-06-17] MEDS: risperiDONE 2 MG TABLET PO ×2 (09:47→20:51)
[2020-06-17] MEDS: LORazepam 1 MG TABLET PO (09:47)
[2020-06-17] MEDS: LORazepam 0.5 MG TABLET PO ×2 (09:48→20:51)
--- NOTE | 2020-06-17 10:39 | P.PNPSI_ITS ---
Subjective Subjective Date of Service: 06/17/20 Reason For Visit: SI Interim History: Pt present as labile, guarded and paranoid. She reports less AH, asking to be discharged soon, with limited insight into need for treatment. Pt signed 3 day notice. She denies SI/HI. She reports eating well. She appears not fully forthcoming in terms of paranoid symptoms. Review of Systems Review of Systems Constitutional: No Weight loss, No Fever, No Chills, No Night Sweats, No Fatigue, No Malaise ENT/Mouth: No Hearing loss, No Ear Pain, No Nasal Congestion, No Sinus Pain, No Hoarseness, No sore throat, No Rhinorrhea, No Swallowing Difficulty Eyes: No Eye Pain, No Swelling, No Redness, No Foreign Body, No Discharge, No Vision Changes Cardiovascular: No Chest Pain, No SOB, No Dyspnea on Exertion, No Orthopnea, No Edema, No Palpitations Respiratory: No Cough, No Sputum, No Wheezing, No Smoke Exposure, No Dyspnea Gastrointestinal: No Nausea, No Vomiting, No Diarrhea, No Constipation, No abdominal Pain, No Hematochezia, No Melena Genitourinary: no irregular bleeding, No Dysuria, No Urinary Frequency, No Hemat uria, No Urinary Incontinence, No Urgency, No Flank Pain, No Urinary Flow Changes, No Hesitancy Musculoskeletal: No joint pain, No Myalgias, No Joint Swelling Skin: No Skin Lesions, No rash Neuro: No Weakness, No Numbness, No Paresthesias, No Loss of Consciousness, No Dizziness, No Headache Psych: As noted per HPI Heme/Lymph: No Bruising, No Bleeding,No Lymphadenopathy Endocrine: No Polyuria, No Polydipsia, No Temperature Intolerance Yes Unobtainable due to mental status Eyes: Reports no additional eye complaints Reports system reviewed and no additional complaints, except as documented and Reports Normal hearing present Cardiovascular: Reports no additional cardiovascular complaints Respiratory: Reports no additional respiratory complaints Gastrointestinal: Reports no additional gastrointestinal complaints Musculoskeletal: Reports no additional musculoskeletal complaints Skin/Breast: Reports system reviewed and no additional complaints, except as docu Reports as per HPI and Reports Normal hearing present Psychiatric: Reports as per HPI Endocrine: Reports no additional endocrine complaints Hematologic/Lymphatic: Reports no additional hematologic/lymphatic complaints Allergic/Immunologic: Reports no additional allergic/immunologic complaints Mental Status Exam Mental Status Exam Narrative: Appearance: disheveled, covered faced with blanket Behavior: uncooperative, guarded Psychomotor: retardation noted Speech: unable to assess TP: unable to assess TC: reports paranoia related to cameras, reported SI Mood:labile Affect:guarded SI:passive HI:none AH/VH:reports hearing voices Delusions:paranoid delusions related to thinking that there are cameras, people following her Insight/judgment:impaired x 2. Memory/cog: alert, unable to assess orientation. impaired secondary to psychiatric symptoms. Diagnostics Vital Signs (24Hr): Vital Signs - 24 hr 06/16/20 18:00 06/17/20 06:00 Temperature 97 F 97.5 F Pulse Rate 80 62 Respiratory Rate 18 Blood Pressure 115/78 100/65 Pulse Oximetry 96 Body Mass Index 25.5 Labs Results: 06/11/20 15:15 06/11/20 15:15 Labs: Laboratory Results - last 48 hr 06/15/20 06/15/20 06/17/20 10:51 10:51 07:45 ESR 18 Total Creatine Kinase 37 C-React Prot High Sens 7.1 H Imaging Radiology Impressions: ITS Impressions Brain MRI 06/14/20 20:15 IMPRESSION: Normal brain MRI. Medications Medications Current Medications Generic Name Dose Route Start Last Admin Trade Name Freq PRN Reason Stop Dose Admin Acetaminophen 650 mg 06/12/20 14:40 Acetaminophen 325 Mg Tablet PO Q6H PRN Headache/Pain Mild Scale (1-3) Al Hydroxide/Mg Hydroxide 30 ml 06/12/20 14:40 Magnesium Hydrox/Alum Hydrox 30 Ml Oral.Susp PO Q6H PRN Heartburn/Nausea Hydroxyzine HCl 25 mg 06/12/20 14:40 Hydroxyzine Hcl 25 Mg Tablet PO BEDTIME PRN Anxiety Levothyroxine Sodium 100 mcg 06/17/20 09:00 06/17/20 09:46 Levothyroxine Sodium 75 Mcg Tablet PO 100 mcg DAILY SOTERO Administration Lorazepam 1 mg 06/13/20 14:26 06/17/20 09:47 Lorazepam 1 Mg Tablet PO 1 mg Q6H PRN Administration Anxiety Lorazepam 0.5 mg 06/13/20 21:00 06/17/20 09:48 Lorazepam 0.5 Mg Tablet PO 0.5 mg BID SOTERO Administration Magnesium Hydroxide 30 ml 06/12/20 14:40 Milk Of Magnesia 30 Ml Oral.Susp PO DAILY PRN Constipation Risperidone 2 mg 06/15/20 21:00 06/17/20 09:47 Risperidone 2 Mg Tablet PO 2 mg BID SOTERO Administration Trazodone HCl 50 mg 06/12/20 14:40 Trazodone Hcl 50 Mg Tablet PO BEDTIME PRN Insomnia Allergies Allergies Allergy/AdvReac Type Severity Reaction Status Date / Time No Known Allergies Allergy Verified 06/11/20 15:00 Assessment & Plan Assessment & Plan (1) Hypothyroidism: Status: Acute Code(s): E03.9 - Hypothyroidism, unspecified Assessment and Plan: TPOantibodies for Carter's disease PENDING I would increase her levothyroxine 200 ?g a day and do a followup TSH and T4 in 6 weeks and adjust the dose accordingly. No further neurological workup is necessary (2) Depression: Status: Acute Code(s): F32.9 - Major depressive disorder, single episode, unspecified Assessment and Plan: continue with current treatment (3) Psychosis: Status: Acute Code(s): F29 - Unspecified psychosis not due to a substance or known physiological condition Assessment and Plan: Treatment of hypothyroidism Greater than 50% of the session was spent on counseling and/or coordination of care Reason for contiued inpatient stay Substantial Risk for: inability to function and med/psych decompensation
--- NOTE | 2020-06-17 11:37 | PC.NURSE ---
PT SIGNED A 3 DAY NOTICE ON Friday06/17/2020. PTS 3 DAY NOTICE IS UP ON Friday06/21/2020.
[2020-06-17] MEDS: Acetaminophen 325 MG TABLET 650 MG PO ×2 (13:26→20:50)
[2020-06-17 21:00] VITALS: BP 135/96; PULSE 78; TEMP 36.9; O2SAT 98
[2020-06-18 06:00] VITALS: BP 108/63; PULSE 64; TEMP 36.1; O2SAT 93
[2020-06-18] MEDS: LORazepam 0.5 MG TABLET PO ×2 (08:03→20:28)
[2020-06-18] MEDS: risperiDONE 2 MG TABLET PO ×2 (08:03→20:28)
[2020-06-18] MEDS: Levothyroxine Sodium 75 MCG TABLET 100 MCG PO (08:03)
[2020-06-18] MEDS: Ibuprofen 600 MG TABLET PO ×2 (08:07→20:28)
--- NOTE | 2020-06-18 17:01 | P.PNPSI_ITS ---
Subjective Subjective Date of Service: 06/18/20 Reason For Visit: SI Interim History: Pt present less labil. She less guarded and paranoid. She reports less AH. She is compliant with meds; utilizing tylenol and ibuprofen for hips and back pain. Wanting to be discharge to go home stating she misses her family. Pt signed 3 day notice. She denies SI/HI. Review of Systems Review of Systems Constitutional: No Weight loss, No Fever, No Chills, No Night Sweats, No Fatigue, No Malaise ENT/Mouth: No Hearing loss, No Ear Pain, No Nasal Congestion, No Sinus Pain, No Hoarseness, No sore throat, No Rhinorrhea, No Swallowing Difficulty Eyes: No Eye Pain, No Swelling, No Redness, No Foreign Body, No Discharge, No Vision Changes Cardiovascular: No Chest Pain, No SOB, No Dyspnea on Exertion, No Orthopnea, No Edema, No Palpitations Respiratory: No Cough, No Sputum, No Wheezing, No Smoke Exposure, No Dyspnea Gastrointestinal: No Nausea, No Vomiting, No Diarrhea, No Constipation, No abdominal Pain, No Hematochezia, No Melena Genitourinary: no irregular bleeding, No Dysuria, No Urinary Frequency, No Hematuria, No Urinary Incontinence, No Urgency, No Flank Pain, No Urinary Flow Changes, No Hesitancy Musculoskeletal: No joint pain, No Myalgias, No Joint Swelling Skin: No Skin Lesions, No rash Neuro: No Weakness, No Numbness, No Paresthesias, No Loss of Consciousness, No Dizziness, No Headache Psych: As noted per HPI Heme/Lymph: No Bruising, No Bleeding,No Lymphadenopathy Endocrine: No Polyuria, No Polydipsia, No Temperature Intolerance Yes Unobtainable due to mental status Eyes: Reports no additional eye complaints Reports system reviewed and no additional complaints, except as documented and Reports Normal hearing present Cardiovascular: Reports no additional cardiovascular complaints Respiratory: Reports no additional respiratory complaints Gastrointestinal: Reports no additional gastrointestinal complaints Musculoskeletal: Reports no additional musculoskeletal complaints Skin/Breast: Reports system reviewed and no additional complaints, except as docu Reports as per HPI and Reports Normal hearing present Psychiatric: Reports as per HPI Endocrine: Reports no additional endocrine complaints Hematologic/Lymphatic: Reports no additional hematologic/lymphatic complaints Allergic/Immunologic: Reports no additional allergic/immunologic complaints Mental Status Exam Mental Status Exam Narrative: Appearance: disheveled, covered faced with blanket Behavior: uncooperative, guarded Psychomotor: retardation noted Speech: unable to assess TP: unable to assess TC: reports paranoia related to cameras, reported SI Mood:labile Affect:guarded SI:passive HI:none AH/VH:reports hearing voices Delusions:paranoid delusions related to thinking that there are cameras, people following her Insight/judgment:impaired x 2. Memory/cog: alert, unable to assess orientation. impaired secondary to psychi atric symptoms. Perceptual Disturbances: Hallucinations (reduced) Thought Process: Distracted Thought Content: positive for Goal Oriented Judgement: Fair Diagnostics Vital Signs (24Hr): Vital Signs - 24 hr 06/17/20 21:00 06/18/20 06:00 Temperature 98.4 F 97 F Pulse Rate 78 64 Blood Pressure 135/96 H 108/63 Pulse Oximetry 98 93 Body Mass Index 25.5 Labs Results: 06/11/20 15:15 06/11/20 15:15 Labs: Laboratory Results - last 48 hr 06/17/20 07:45 Total Creatine Kinase 37 Imaging Radiology Impressions: ITS Impressions Brain MRI 06/14/20 20:15 IMPRESSION: Normal brain MRI. Medications Medications Current Medications Generic Name Dose Route Start Last Admin Trade Name Freq PRN Reason Stop Dose Admin Acetaminophen 650 mg 06/12/20 14:40 06/17/20 20:50 Acetaminophen 325 Mg Tablet PO 650 mg Q6H PRN Administration Headache/Pain Mild Scale (1-3) Al Hydroxide/Mg Hydroxide 30 ml 06/12/20 14:40 Magnesium Hydrox/Alum Hydrox 30 Ml Oral.Susp PO Q6H PRN Heartburn/Nausea Hydroxyzine HCl 25 mg 06/12/20 14:40 Hydroxyzine Hcl 25 Mg Tablet PO BEDTIME PRN Anxiety Ibuprofen 600 mg 06/17/20 20:49 06/18/20 08:07 Ibuprofen 600 Mg Tablet PO 600 mg Q8H PRN Administration back cain Levothyroxine Sodium 100 mcg 06/17/20 09:00 06/18/20 08:03 Levothyroxine Sodium 75 Mcg Tablet PO 100 mcg DAILY SOTERO Administration Lorazepam 1 mg 06/13/20 14:26 06/17/20 09:47 Lorazepam 1 Mg Tablet PO 1 mg Q6H PRN Administration Anxiety Lorazepam 0.5 mg 06/13/20 21:00 06/18/20 08:03 Lorazepam 0.5 Mg Tablet PO 0.5 mg BID SOTERO Administration Magnesium Hydroxide 30 ml 06/12/20 14:40 Milk Of Magnesia 30 Ml Oral.Susp PO DAILY PRN Constipation Risperidone 2 mg 06/15/20 21:00 06/18/20 08:03 Risperidone 2 Mg Tablet PO 2 mg BID SOTERO Administration Trazodone HCl 50 mg 06/12/20 14:40 Trazodone Hcl 50 Mg Tablet PO BEDTIME PRN Insomnia Allergies Allergies Allergy/AdvReac Type Severity Reaction Status Date / Time No Known Allergies Allergy Verified 06/11/20 15:00 Assessment & Plan Assessment & Plan (1) Hypothyroidism: Status: Acute Code(s): E03.9 - Hypothyroidism, unspecified Assessment and Plan: TPOantibodies for Carter's disease PENDING (2) Depression: Status: Acute Code(s): F32.9 - Major depressive disorder, single episode, unspecified Assessment and Plan: continue with current treatment (3) Psychosis: Status: Acute Code(s): F29 - Unspecified psychosis not due to a substance or known physiological condition Assessment and Plan: Treatment of hypothyroidism Greater than 50% of the session was spent on counseling and/or coordination of c are Reason for contiued inpatient stay Substantial Risk for: harm to self and med/psych decompensation
[2020-06-18 20:30] VITALS: BP 140/76; PULSE 64; TEMP 36.6
[2020-06-19 06:15] VITALS: BP 84/60; PULSE 82; RESP 16; TEMP 36.8; O2SAT 96
[2020-06-19] MEDS: risperiDONE 2 MG TABLET PO ×2 (08:18→20:18)
[2020-06-19] MEDS: Levothyroxine Sodium 75 MCG TABLET 100 MCG PO (08:18)
[2020-06-19 08:58] LABS: TSH reflex Free T4 82.93 uIU/mL (0.32-4.0)
--- NOTE | 2020-06-19 12:56 | HO.PSYCHPN ---
Subjective Subjective Date of Service: 06/19/20 Reason For Visit: SI Interim History: Pt increasingly more visible in the unit and less guarded with staff and providers. Pt reports less AH. She reports she is not as worried about being followed or monitored. She reports sleeping and eating well. She denies SI/HI. She is taking medications as prescribed. She asks for discharge soon, pending collateral info from who has come to visit pt daily. Review of Systems Review of Systems Constitutional: No Weight loss, No Fever, No Chills, No Night Sweats, No Fatigue, No Malaise ENT/Mouth: No Hearing loss, No Ear Pain, No Nasal Congestion, No Sinus Pain, No Hoarseness, No sore throat, No Rhinorrhea, No Swallowing Difficulty Eyes: No Eye Pain, No Swelling, No Redness, No Foreign Body, No Discharge, No Vision Changes Cardiovascular: No Chest Pain, No SOB, No Dyspnea on Exertion, No Orthopnea, No Edema, No Palpitations Respiratory: No Cough, No Sputum, No Wheezing, No Smoke Exposure, No Dyspnea Gastrointestinal: No Nausea, No Vomiting, No Diarrhea, No Constipation, No abdominal Pain, No Hematochezia, No Melena Genitourinary: no irregular bleeding, No Dysuria, No Urinary Frequency, No Hematuria, No Urinary Incontinence, No Urgency, No Flank Pain, No Urinary Flow Changes, No Hesitancy Musculoskeletal: No joint pain, No Myalgias, No Joint Swelling Skin: No Skin Lesions, No rash Neuro: No Weakness, No Numbness, No Paresthesias, No Loss of Consciousness, No Dizziness, No Headache Psych: As noted per HPI Heme/Lymph: No Bruising, No Bleeding,No Lymphadenopathy Endocrine: No Polyuria, No Polydipsia, No Temperature Intolerance Yes Unobtainable due to mental status Eyes: Reports no additional eye complaints Reports system reviewed and no additional complaints, except as documented and Reports Normal hearing present Cardiovascular: Reports no additional cardiovascular complaints Respiratory: Reports no additional respiratory complaints Gastrointestinal: Reports no additional gastrointestinal complaints Musculoskeletal: Reports no additional musculoskeletal complaints Skin/Breast: Reports system reviewed and no additional complaints, except as docu Reports as per HPI and Reports Normal hearing present Psychiatric: Reports as per HPI Endocrine: Reports no additional endocrine complaints Hematologic/Lymphatic: Reports no additional hematologic/lymphatic complaints Allergic/Immunologic: Reports no additional allergic/immunologic complaints Mental Status Exam Mental Status Exam Narrative: Appearance: casually groomed, less disheveled, in NAD Behavior: less guarded Psychomotor:no agitation or retardation noted Speech: clear, normal rate/rhythm, soft volume, spontaneous TP: linear TC: less paranoia, looking forward to return home Mood: good Affect:blunted SI:denies HI:none AH/VH:reports less AH Delusions: residual paranoid but to much lesser extend Insight/judgment:improving x 2. Memory/cog: alert, oriented x 3. Diagnostics Vital Signs (24Hr): Vital Signs - 24 hr 06/18/20 20:30 06/19/20 06:15 Temperature 97.9 F 98.3 F Pulse Rate 64 82 Respiratory Rate 16 Blood Pressure 140/76 H 84/60 L Pulse Oximetry 96 Body Mass Index 25.5 Labs Results: 06/11/20 15:15 06/11/20 15:15 Labs: Laboratory Results - last 48 hr 06/19/20 07:55 TSH 82.93 H Free T4 0.70 L Imaging Radiology Impressions: ITS Impressions Brain MRI 06/14/20 20:15 IMPRESSION: Normal brain MRI. Medications Medications Current Medications Generic Name Dose Route Start Last Admin Trade Name Freq PRN Reason Stop Dose Admin Acetaminophen 650 mg 06/12/20 14:40 06/17/20 20:50 Acetaminophen 325 Mg Tablet PO 650 mg Q6H PRN Administration Headache/Pain Mild Scale (1-3) Al Hydroxide/Mg Hydroxide 30 ml 06/12/20 14:40 Magnesium Hydrox/Alum Hydrox 30 Ml Oral.Susp PO Q6H PRN Heartburn/Nausea Hydroxyzine HCl 25 mg 06/12/20 14:40 Hydroxyzine Hcl 25 Mg Tablet PO BEDTIME PRN Anxiety Ibuprofen 600 mg 06/17/20 20:49 06/18/20 20:28 Ibuprofen 600 Mg Tablet PO 600 mg Q8H PRN Administration back cain Levothyroxine Sodium 100 mcg 06/17/20 09:00 06/19/20 08:18 Levothyroxine Sodium 75 Mcg Tablet PO 100 mcg DAILY SOTERO Administration Lorazepam 1 mg 06/13/20 14:26 06/17/20 09:47 Lorazepam 1 Mg Tablet PO 1 mg Q6H PRN Administration Anxiety Magnesium Hydroxide 30 ml 06/12/20 14:40 Milk Of Magnesia 30 Ml Oral.Susp PO DAILY PRN Constipation Risperidone 2 mg 06/15/20 21:00 06/19/20 08:18 Risperidone 2 Mg Tablet PO 2 mg BID SOTERO Administration Trazodone HCl 50 mg 06/12/20 14:40 Trazodone Hcl 50 Mg Tablet PO BEDTIME PRN Insomnia Allergies Allergies Allergy/AdvReac Type Severity Reaction Status Date / Time No Known Allergies Allergy Verified 06/11/20 15:00 Assessment & Plan Assessment & Plan (1) Hypothyroidism: Status: Acute Code(s): E03.9 - Hypothyroidism, unspecified Assessment and Plan: TPOantibodies for Carter's disease PENDING (2) Depression: Status: Acute Code(s): F32.9 - Major depressive disorder, single episode, unspecified Assessment and Plan: continue with current treatment (3) Psychosis: Status: Acute Code(s): F29 - Unspecified psychosis not due to a substance or known physiological condition Assessment and Plan: Treatment of hypothyroidism Greater than 50% of the session was spent on counseling and/or coordination of care Reason for contiued inpatient stay Substantial Risk for: stable for discharge
[2020-06-19 13:43] LABS: Thyroid Peroxidase Antibodies 382 IU/mL (<9)
--- NOTE | 2020-06-19 14:33 | PC.NURSE ---
PT IS NOT A SMOKER. DOES NOT NEED NICOTINE REPLACEMENT.
[2020-06-19 18:00] VITALS: BP 131/81; PULSE 73; RESP 16; TEMP 36.7; O2SAT 98
[2020-06-20 06:20] VITALS: BP 87/55; PULSE 72; RESP 16; TEMP 36.9; O2SAT 96
[2020-06-20] MEDS: Levothyroxine Sodium 75 MCG TABLET 100 MCG PO (09:14)
[2020-06-20] MEDS: risperiDONE 2 MG TABLET PO (09:14)
[2020-06-20] MEDS: Ibuprofen 600 MG TABLET PO (09:27)
--- NOTE | 2020-06-20 09:59 | PM.PSYDC ---
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 No evidence of primary neurological process with completely normal exam and followup MRI as well as previous workup at [facility] 2 months ago (2) Depression: Status: Acute (3) Psychosis: Status: Acute Problem details: Probably related to hypothyroidism DS: Medications Discharge Medications Home Medications: Previous Rx's Medication Instructions Recorded levothyroxine 100 mcg PO DAILY 30 Days #40 tab 06/20/20 lorazepam 1 mg PO BID PRN 30 Days #60 tab 06/20/20 risperidone 2 mg PO BID 30 Days #60 tab 06/20/20 trazodone 50 mg PO BEDTIME PRN 30 Days tab 06/20/20 Discharge Plan Discharge Patient Disposition: Home, Self-Care Referrals: Tania Arvizu (therapist) [Other] - 06/23/20 9:00 am (Intake is telehealth. Subsequent appointments may be in person if worked out with therapist) Luis Ny (psychiatrist) [Other] - 07/20/20 3:30 pm (Telehealth appointment) Luis Ny (psychiatrist) [Other] - 08/01/20 3:30 pm (Telehealth appointment) Physician,Unknown [Primary Care Provider] - Discharge Medications: New trazodone 50 mg Tablet 50 mg PO BEDTIME PRN (Reason: Insomnia) 30 Days RF: 0 levothyroxine 75 mcg Tablet 100 mcg PO DAILY 30 Days Qty: 40 RF: 0 risperidone 2 mg Tablet 2 mg PO BID 30 Days Qty: 60 RF: 0 lorazepam 1 mg Tablet 1 mg PO BID PRN (Reason: Anxiety) 30 Days Qty: 60 RF: 0 Discontinued venlafaxine 75 mg capsule,extended release 24hr 225 mg PO DAILY RF: 0 levothyroxine 75 mcg tablet 75 mcg PO DAILY RF: 0 Discharge Orders: Discharge Order (Routine); Ordered 06/20/20 Ordered By: Vanita Chong Diet: regular diet Activity on Discharge: As tolerated Stand Alone Forms: Patient Portal Discharge page Care Plan Goals: 1. Take medications as prescribed. Health Concerns: 1. follow up with PCP Plan of Treatment: take medications as prescribed Assessment: stable Mental Status Exam Mental Status Exam Narrative: Appearance: casually groomed, less disheveled, in NAD Behavior: less guarded Psychomotor:no agitation or retardation noted Speech: clear, normal rate/rhythm, soft volume, spontaneous TP: linear TC: less paranoia, looking forward to return home Mood: good Affect:blunted SI:denies HI:none AH/VH:reports less AH Delusions: residual paranoid but to much lesser extend Insight/judgment:improving x 2. Memory/cog: alert, oriented x 3. Data Data Completed and Pending Completed studies during hospitalization [Text1]: 06/14/20 06/14/20 06/14/20 10:35 10:35 10:35 ESR Estimat Average Glucose Hemoglobin A1c % Total Creatine Kinase C-React Prot High Sens Triglycerides Cholesterol LDL Cholesterol, Calc HDL Cholesterol Vitamin B12 Folate TSH Free T4 Urine Color YELLOW Urine Appearance HAZY Urine pH 6.0 Ur Specific [place] 1.025 Urine Protein NEG Urine Glucose (UA) NEG Urine Ketones >=80 Urine Blood TRACE Urine Nitrite NEG Ur Leukocyte Esterase NEG Urine RBC 0-2 Urine WBC 0-2 Ur Squamous Epith Cells 2+ Urine Bacteria NONE Urine Mucus 2+ Urine Test NEGATIVE Urine Opiates Screen Not Detected Ur Barbiturates Screen Not Detected Ur Phencyclidine Scrn Not Detected Ur Amphetamines Screen Not Detected U Benzodiazepines Scrn Not Detected Urine Cocaine Screen Not Detected U Marijuana (THC) Screen POSITIVE H Thyroid Peroxidase Ab 06/15/20 06/15/20 06/15/20 08:04 08:04 08:04 ESR Estimat Average Glucose 100 Hemoglobin A1c % 5.1 Total Creatine Kinase C-React Prot High Sens Triglycerides 141 Cholesterol 312 LDL Cholesterol, Calc 243 HDL Cholesterol 41 Vitamin B12 263 Folate 8.1 TSH 97.80 H Free T4 0.64 L Urine Color Urine Appearance Urine pH Ur Specific [place] Urine Protein Urine Glucose (UA) Urine Ketones Urine Blood Urine Nitrite Ur Leukocyte Esterase Urine RBC Urine WBC Ur Squamous Epith Cells Urine Bacteria Urine Mucus Urine Test Urine Opiates Screen Ur Barbiturates Screen Ur Phencyclidine Scrn Ur Amphetamines Screen U Benzodiazepines Scrn Urine Cocaine Screen U Marijuana (THC) Screen Thyroid Peroxidase Ab 06/15/20 06/15/20 06/17/20 10:51 10:51 07:45 ESR 18 Estimat Average Glucose Hemoglobin A1c % Total Creatine Kinase C-React Prot High Sens 7.1 H Triglycerides Cholesterol LDL Cholesterol, Calc HDL Cholesterol Vitamin B12 Folate TSH Free T4 Urine Color Urine Appearance Urine pH Ur Specific [place] Urine Protein Urine Glucose (UA) Urine Ketones Urine Blood Urine Nitrite Ur Leukocyte Esterase Urine RBC Urine WBC Ur Squamous Epith Cells Urine Bacteria Urine Mucus Urine Test Urine Opiates Screen Ur Barbiturates Screen Ur Phencyclidine Scrn Ur Amphetamines Screen U Benzodiazepines Scrn Urine Cocaine Screen U Marijuana (THC) Screen Thyroid Peroxidase Ab 382 H 06/17/20 06/19/20 07:45 07:55 ESR Estimat Average Glucose Hemoglobin A1c % Total Creatine Kinase 37 C-React Prot High Sens Triglycerides Cholesterol LDL Cholesterol, Calc HDL Cholesterol Vitamin B12 Folate TSH 82.93 H Free T4 0.70 L Urine Color Urine Appearance Urine pH Ur Specific [place] Urine Protein Urine Glucose (UA) Urine Ketones Urine Blood Urine Nitrite Ur Leukocyte Esterase Urine RBC Urine WBC Ur Squamous Epith Cells Urine Bacteria Urine Mucus Urine Test Urine Opiates Screen Ur Barbiturates Screen Ur Phencyclidine Scrn Ur Amphetamines Screen U Benzodiazepines Scrn Urine Cocaine Screen U Marijuana (THC) Screen Thyroid Peroxidase Ab Imaging Diagnostic Imaging Impressions Brain MRI 06/14/20 20:15 IMPRESSION: Normal brain MRI. DS: Summary Hospital Course Hospital Course: Mrs. Hernandez is a 40 year-old woman with hx of depression who has been presenting with increased paranoid delusions of being monitored/video taped, agitation, poor sleep since December 2019. Pt was brought to [facility] ED on 06/11/2020 via EMS after called the police due to pt yelling screaming, stating that someone was video taping her in the bathroom, holding a bat and threatening to hurt . In the ED, BAL less than 10. No other Utox was completed. Most information gathered from , as pt declines to speak with this senior grant writer. Per , pt presented some mild signs of paranoia after her mother 2 years ago. Apparently, pt insisted that her had an affair and called several times to his job to the point that he ended up leaving his job. He reports she was fairly stable but since December 2019, pt has been reporting that she is being video tapped, she laughs inappropriately, she has a blank stare at times. Most recently, pt was becoming more agitated, telling and their children not to go to bathroom because they were all monitored and video tapped. She also grabbed an electric racer and tried to shave her head. She became very agitated and combative when tried to redirected her. He called 911. Pt barricaded herself in their room. HOSPITAL COURSE On the unit, Mrs. Hernandez presented as very guarded paranoid, reporting suicidal ideation, AH. She was minimally interactive with peers or staff. Pt has been increasingly presenting with psychotic features, including paranoid delusions, hearing voices since December 2019. Pt had complete neurological work up at [facility] in February 2020 including MRI, LP that included meningitis/encephalitis panel, as well as paraneoplastic and autoimmune encephalitis panel that came all negative. Pt had been on remicade (TNF-alpha aman) for treatment of ankylosing spondylitis, which can cause psychosis months after last use, but this treatment was stopped in August 2019. Collateral information from both her PCP and rhematologist were obtained. Rhematologist suggested possibility of penitentiary effect of remicade causing ENVIRONMENTAL ECONOMIST demyelination and recommended follow up MRI- which was completed and did not show any signs of demyelination. Pt did have significantly elevated TSH 99.0, Low Free T4 0.61, elevated Thyroid peroxide ab 382, suggesting Carter's hypothyroidism. Pt's levothyroxine was increased to 100mcg po daily. After discussing risks, benefits and alternative treatment options, pt was started on risperidone 1mg po BID. Effexor was taper off given that it could worsened symptoms of psychosis. Pt gradually presented as much less guarded, less paranoid, reporting less AH and reporting less paranoid delusions. She was sleeping and eating well at night. She was increasingly more visible in the unit and social with select peers. Her thought process was much more coherent and logical. Her thought content with much more elements based on reality. She denied SI/HI. She did not show any signs of aggression towards self or others. There was only one disruptive episode when pt threw tray at RN without any trigger. There were no need for restraints. Pt's came to visit daily. At time of discharge, reported that pt appear in much improved condition and denied any safety concerns. Time spent discussing smoking cessation with patient: 3 to 10 minutes Status at Discharge Cognitive/behavioral status at discharge: Pt with brighter affect, less paranoid delusions. No AH. Pt denies SI/HI. No signs of aggression towards self or others. Functional status at discharge: independent ambulation Overall status at discharge: patient is progressing back to baseline Time Spent with Patient Time attestation: Total time spent providing and/or coordinating discharge services: Time spent: Greater than 30 minutes
--- NOTE | 2020-06-20 11:16 | PC.NURSE ---
PT IS AWARE AND READY FOR DISCHARGE. SHE IS RECEPTIVE TO EDUCATION REGARDING FOLLOW UP CARE AND MEDICATIONS. PT REPORTS NO DEPRESSION OR ANXIETY AT THIS TIME. PT HAS LESS AH THAN UPON ARRIVAL. PT DENIES VH. PT DENIES SI/HI. PT IS INDEPENDENTLY TAKING CARE OF ADLS. PT IS EATING AND SLEEPING WELL. PT HAD NO MEDICAL COMPLAINTS AT THIS TIME. PTS PAIN IS BEING CONTROLLED WITH IBUPROFEN/TYLENOL. PTS PAPERWORK WILL BE FAXED TO PROVIDERS PER PROTOCOL.
[2020-06-20] MEDS: Acetaminophen 325 MG TABLET 650 MG PO (11:35)
== END 2020-06-20 11:55 | disposition home or self-care (01) | DRG 754 ==
LOC: HO.ED 06-12 14:26 → HO.PM5 06-12 14:50
PROVIDERS: Nurse Practitioner Primary Care; Admitting Provider Psychiatry & Neurology Psychiatry; Emergency Provider Internal Medicine; Visit Provider Social Worker
DX: F32.9 Major depressive disorder, single episode, unspecified (principal); R45.851 Suicidal ideations; F06.8 Other specified mental disorders due to known physiological condition; E03.9 Hypothyroidism, unspecified; Z79.890 Hormone replacement therapy; Z79.899 Other long term (current) drug therapy
CPT/HCPCS: 36415; 70553; 80053; 80061; 80307; 80320; 81001; 81025; 82550; 82607; 82746; 83036; 84439; 84443; 85025; 85652; 86141; 86376; 99285; A9585

== ENCOUNTER 2022-03-22 09:25 | Emergency (ER) | payer BC, SELFPAY ==
--- NOTE | ~2022-03-22 | CT_ITS ---
EXAMINATION: CT ABDOMEN AND PELVIS WITHOUT CONTRAST CLINICAL INFORMATION: Abdominal pain COMPARISON: None. TECHNIQUE: Multidetector volumetric imaging was performed from the lung bases through the pubic symphysis. Sagittal and coronal reformatted images were obtained on the technologist workstation. This CT examination was performed using dose optimization techniques as appropriate, variously including the following: *Automated exposure control *Adjustment of mA and/or kV according to patient size (this includes techniques or standardized protocols for targeted exams where dose is matched to indication/reason for exam; i.e. extremities or head) *Use of iterative reconstruction technique FINDINGS: The lack of intravenous contrast limits evaluation of the solid visceral organs including the liver, spleen, pancreas, and kidneys. LUNG BASES: The visualized lung bases are unremarkable. LIVER, GALLBLADDER, AND BILIARY TREE: Limited non-contrast evaluation is normal. No gross focal hepatic lesion. Normal liver size and contour. No gross biliary ductal dilation. The gallbladder is unremarkable with no evidence of radiopaque gallstones, gallbladder wall thickening, or obvious pericholecystic inflammatory changes. PANCREAS: Limited non-contrast evaluation is normal. No shantal-pancreatic fluid. SPLEEN: Limited non-contrast evaluation is normal. ADRENAL GLANDS: Normal; no adrenal mass. KIDNEYS AND URETERS: 1.1 cm fat density lesion of the anterior cortex of the lower pole of the right kidney consistent with an angiomyolipoma. No imaging follow-up recommended. No calculi or hydronephrosis. GASTROINTESTINAL TRACT: Small bowel and colon are non-dilated. No bowel wall thickening. No pericolonic inflammatory changes to suggest colitis or diverticulitis. ABDOMINAL WALL: Small fat-containing umbilical hernia. LYMPH NODES: No pathologically enlarged lymph nodes in the abdomen or pelvis. VASCULAR: Normal caliber abdominal aorta. BLADDER: Unremarkable. PELVIC VISCERA: Normal CT appearance of the ovaries. No adnexal mass. OSSEOUS STRUCTURES: No acute or suspicious osseous abnormalities. CT/CT abdomen pelvis wo IV con IMPRESSION: No acute CT findings.
[2022-03-22 09:39] VITALS: BP 175/105; PULSE 80; RESP 16; TEMP 36.9; O2SAT 95; BMI 28.3
--- NOTE | 2022-03-22 09:46 | ED_ITS ---
HPI - General Adult General Chief complaint: Abdominal Pain Stated complaint: Vomiting Time Seen by Provider: 03/22/22 09:34 Source: patient and family () Mode of arrival: ambulatory Limitations: no limitations History of Present Illness HPI narrative: 42-year-old female came in for evaluation of abdominal pain and vomiting. Patient's symptoms started about 2 weeks ago with suprapubic pain that is mostly in the morning time then gets better as the day wear on, came in today because the suprapubic pain persist and caused vomiting x3 this morning, past surgical history is significant for hysterectomy. Patient declined dysuria, no frequency urination, hematuria which is normal for the patient to see blood in her urine. Related Data Previous Rx's Medication Instructions Recorded levothyroxine 75 mcg tablet 100 mcg PO DAILY 30 days #40 tabs 06/20/20 lorazepam 1 mg tablet 1 mg PO BID PRN Anxiety 30 days 06/20/20 #60 tabs risperidone 2 mg tablet 2 mg PO BID 30 days #60 tabs 06/20/20 trazodone 50 mg tablet 50 mg PO BEDTIME PRN Insomnia 30 06/20/20 days Allergies Allergy/AdvReac Type Severity Reaction Status Date / Time No Known Allergies Allergy Verified 06/11/20 15:00 Review of Systems Review of Systems: All other systems are reviewed and are negative Constitutional: Reports as per HPI and Reports no additional constitutional complaints Eyes: Reports as per HPI and Reports no additional eye complaints Reports system reviewed and no additional complaints, except as documented Cardiovascular: Reports as per HPI and Reports no additional cardiovascular complaints Respiratory: Reports as per HPI and Reports no additional respiratory complaints Gastrointestinal: Reports as per HPI and Reports no additional gastrointestinal complaints Genitourinary: Reports no additional female genitourinary complaints Musculoskeletal: Reports no additional musculoskeletal complaints Skin/Breast: Reports system reviewed and no additional complaints, except as docu Psychiatric: Reports no additional psychiatric complaints Endocrine: Reports no additional endocrine complaints Hematologic/Lymphatic: Reports no additional hematologic/lymphatic complaints Allergic/Immunologic: Reports no additional allergic/immunologic complaints Reports system reviewed and no additional complaints, except as documented and Reports Abnormal speech present [facility] Past Medical History Medical History (Updated 03/22/22 @ 15:25 by Aranza Fernandes MD) Hypothyroidism Surgical History (Updated 03/22/22 @ 13:18 by Winsome Alvarez) H/O tubal ligation H/O: hysterectomy Social History Social History Household Members: Spouse and Family Housing: House Unable to assess alcohol history related to: Refusing to respond Alcohol intake: unknown Smoked in Last 30 Days: Yes Use of substances other than those prescribed or required for medical reasons: Unknown Advance Directives: Yes Advance Directives Information Provided: Yes Advance Directives on File: No Patient : No service: No Sexual orientation: Straight/Heterosexual Physical Exam ED Vital Signs: Vital Signs - 24 hr 03/22/22 09:39 03/22/22 12:25 Temperature 98.4 F Pulse Rate 80 71 Respiratory Rate 16 16 Blood Pressure 175/105 H 151/87 H Pulse Oximetry 95 93 Oxygen Delivery Method Room Air Room Air BMI result Body Mass Index 28.3 Vital signs have been reviewed as appeared to be correct. Blood pressure normal. Heart rate normal. Respiration rate normal. Temperature normal. Oxygen saturation normal. Appearance: Alert. Oriented X3. No acute distress. Head: Normal external exam. Normocephalic. Atraumatic. No Howard signs noted. No raccoon eyes noted Eyes: PERRLA. EOMI. Conjunctiva and sclera normal. Eyelids normal. ENT: TM's Normal. Pharynx normal. Uvula midline. Moist mucous membranes. No trismus noted. No drooling noted. No muffled voice noted. Neck: Normal inspection. Neck supple. FROM. No adenopathy. Thyroid Normal. No meningeal signs. No neck mass noted. CVS: Normal heart rate and rhythm. Heart sound normal. No murmurs noted. Pulses normal throughout. Respiratory: No respiratory distress. Painless inspiration. Breath sounds heath l. No wheezes/rales/rhonchi noted. Chest nontender. No accessory muscle usage noted or decreased air movement noted. Abdomen: Soft and nontender. Bowel sounds normal in all 4 quadrants. No distention noted. No organomegaly noted. No visible injury noted. Back: No CVA tenderness. Full range of motion noted. Skin: Skin warm and dry. Normal skin color. Normal skin turgor. No rashes/lesions/lacerations noted. Extremities: No lower extremity edema. Extremities exhibit normal range of motion. Extremities nontender. Neuro: Oriented X 3. Cranial nerve exam: II-XII are grossly intact No motor deficit. No sensory deficit. Reflexes normal. Course Course Course Narrative: 42-year-old female came in for evaluation of suprapubic pain, patient has unremarkable labs and UA. Patient has also CT of the abdomen and pelvis which was unremarkable for acute pathology patient was reassured and instructed to follow-up with her PCP.. Medications Administered Discontinued Medications Generic Name Dose Route Start Last Admin Trade Name Freq PRN Reason Stop Dose Admin Al Hydroxide/Mg Hydroxide 30 ml 03/22/22 09:42 03/22/22 09:59 Magnesium Hydrox/Alum Hydrox 30 Ml Oral.Susp PO 03/22/22 09:43 30 ml ONCE ONE Administration Famotidine 20 mg 03/22/22 09:42 03/22/22 09:59 Famotidine/Pf 20 Mg/2 Ml Vial IVPUSH 03/22/22 09:43 20 mg ONCE ONE Administration Sodium Chloride 1,000 mls @ 999 mls/hr 03/22/22 09:42 03/22/22 10:58 Ns IV 03/22/22 10:42 Infused .Q1H1M ONE Infusion Ondansetron HCl 4 mg 03/22/22 09:42 03/22/22 09:59 Ondansetron Hcl 4 Mg/2 Ml Vial IVPUSH 03/22/22 09:43 4 mg ONCE ONE Administration Medical Decision Making Differential Diagnosis Differential Diagnoses: The differential diagnosis associated with the presentation includes (UTI, colitis, appendicitis, pancreatitis, GB disease.) Lab Data MDM Lab Attestation statement: I reviewed the patient's lab results. 03/22/22 09:55 03/22/22 09:55 Labs: Lab Results 03/22/22 03/22/22 03/22/22 Range/Units 09:55 09:55 12:22 WBC 10.6 (4.8-10.8) X10*3/uL RBC 4.59 (4.20-5.50) X10*6/uL Hgb 15.8 (12.0-16.0) g/dl Hct 45.1 (37.0-47.0) % MCV 98.3 H (80.0-98.0) fL MCH 34.4 H (27.0-33.0) pg MCHC 35.0 (31.0-35.0) g/dl RDW 13.4 (11.0-16.0) % Plt Count 237 (160-400) X10*3/uL MPV 10.2 (9.4-12.3) fL Immature Gran % (Auto) 0.5 H (0.0-0.4) % Neut % (Auto) 69.9 (45-73) % Lymph % (Auto) 22.1 (20-40) % [place] % (Auto) 6.7 (2-11) % Eos % (Auto) 0.3 (0-4) % Baso % (Auto) 0.5 (0-2) % Lymph # (Auto) 2.4 (1.2-4.9) X10*3/uL [place] # (Auto) 0.7 (0.1-1.2) X10*3/uL Eos # (Auto) 0.0 (0.0-0.4) X10*3/uL Baso # (Auto) 0.1 (0.0-0.2) X10*3/uL Abs Immat Gran (auto) 0.05 H (0.00-0.03) X10*3/uL Absolute Neuts (auto) 7.4 (2.0-8.3) x10*3/uL Absolute Nucleated RBC 0.000 (0.0-0.012) X10*3/uL Nucleated RBC % (auto) 0.0 (0.0-0.2) /100WBC Sodium 139 (135-145) mmol/L Potassium 3.7 (3.3-5.1) mmol/L Chloride 100 (96-108) mmol/L Carbon Dioxide 30 H (22-29) mmol/L Anion Gap 13 (12-20) BUN 4 L (9-16) mg/dL Creatinine 0.77 (0.5-1.4) mg/dL Estim Creat Clear Calc 96.1 Estimated GFR > 60 Random Glucose 104 (60-115) mg/dL Calcium 9.3 D (8.4-10.2) mg/dL Total Bilirubin 0.7 (0.0-1.0) mg/dL Direct Bilirubin 0.2 (0.0-0.5) mg/dL AST 11 (5-31) U/L ALT 12 (0-31) U/L Alkaline Phosphatase 65 (39-117) U/L Total Protein 6.9 (6.5-8.0) g/dL Albumin 4.3 (3.5-5.0) g/dL Lipase 15 (8-78) U/L Urine Color Yellow Urine Appearance Clear Urine pH 7.0 (5.0-9.0) Ur Specific [place] <= 1.005 (1.005-1.025) Urine Protein Negative (Neg-Trace) mg/dL Urine Glucose (UA) Negative (Negative) mg/dL Urine Ketones Negative (Negative) mg/dL Urine Blood Negative (Negative) Urine Nitrite Negative (Negative) Ur Leukocyte Esterase Negative (Negative) Independent Interpretation I performed an independent interpretation of an: CT Scan (Abdomen and pelvis CT: No acute pathology.) Radiology Impression Discussion of test interpretation with radiology: I have reviewed the radiologist's reading. Discharge Plan Discharge Clinical Impression: Abdominal pain Patient Disposition: Home, Self-Care Instructions: Abdominal Pain (ED) Prescriptions: No Action trazodone 50 mg Tablet 50 mg PO BEDTIME PRN (Reason: Insomnia) 30 Days 0RF levothyroxine 75 mcg Tablet 100 mcg PO DAILY 30 Days Qty: 40 0RF risperidone 2 mg Tablet 2 mg PO BID 30 Days Qty: 60 0RF lorazepam 1 mg Tablet 1 mg PO BID PRN (Reason: Anxiety) 30 Days Qty: 60 0RF Referrals: Jasper Lam MD [Primary Care Provider] -
[2022-03-22] MEDS: 0.9 % Sodium Chloride 1,000 ML 999 ML IV (09:57)
[2022-03-22 09:59] LABS: MANUAL DIFF FLAG NO
[2022-03-22] MEDS: Famotidine/PF 20 MG/2 ML VIAL IVPUSH (09:59)
[2022-03-22] MEDS: Magnesium Hydrox/Alum Hydrox 30 ML ORAL.SUSP PO (09:59)
[2022-03-22] MEDS: ondansetron HCL 4 MG/2 ML VIAL IVPUSH (09:59)
[2022-03-22 10:00] LABS: Basophils Absolute Auto 0.1 X10*3/uL (0.0-0.2); Basophils Percent Auto 0.5 % (0-2); Eosinophils Percent Auto 0.3 % (0-4); Hematocrit 45.1 % (37.0-47.0); Hemoglobin 15.8 g/dl (12.0-16.0); Imm Gran Abs Auto 0.05 X10*3/uL (0.00-0.03); Imm Gran Pct Auto 0.5 % (0.0-0.4); Lymphocytes Absolute Auto 2.4 X10*3/uL (1.2-4.9); Lymphocytes Percent Auto 22.1 % (20-40); Mean Corpuscular Hemoglobin 34.4 pg (27.0-33.0); Mean Corpuscular Volume 98.3 fL (80.0-98.0); Mean Platelet Volume 10.2 fL (9.4-12.3); Monocytes Absolute Auto 0.7 X10*3/uL (0.1-1.2); Monocytes Percent Auto 6.7 % (2-11); Neutrophils Absolute Auto 7.4 x10*3/uL (2.0-8.3); Neutrophils Percent Auto 69.9 % (45-73); Platelet Count 237 X10*3/uL (160-400); Red Blood Count 4.59 X10*6/uL (4.20-5.50); Red Cell Distribution Width 13.4 % (11.0-16.0); White Blood Count 10.6 X10*3/uL (4.8-10.8)
[2022-03-22 10:26] LABS: Alanine Aminotransferase 12 U/L (0-31); Albumin Level 4.3 g/dL (3.5-5.0); Alkaline Phosphatase 65 U/L (39-117); Anion Gap 13 (12-20); Aspartate Amino Transferase 11 U/L (5-31); Bilirubin Direct 0.2 mg/dL (0.0-0.5); Bilirubin Total 0.7 mg/dL (0.0-1.0); Blood Urea Nitrogen 4 mg/dL (9-16); Calcium 9.3 mg/dL (8.4-10.2); Carbon Dioxide 30 mmol/L (22-29); Chloride 100 mmol/L (96-108); Creatinine Clr Calc Pharmacy 96.1; Estimated Glomerular Filt Rate > 60; Glucose Random 104 mg/dL (60-115); Lipase 15 U/L (8-78); Potassium 3.7 mmol/L (3.3-5.1); Sodium 139 mmol/L (135-145); Total Protein 6.9 g/dL (6.5-8.0)
[2022-03-22 12:25] VITALS: BP 151/87; PULSE 71; RESP 16; O2SAT 93
[2022-03-22 12:35] LABS: Appearance Urine Clear; Color Urine Yellow; Glucose Urine UA Negative (Negative); Leukocyte Esterase Urine Negative (Negative); Nitrite Urine Negative (Negative); Specific Gravity - Urine <= 1.005 (1.005-1.025); Urine Blood Negative (Negative); Urine Ketones Negative (Negative); Urine Protein Negative (Neg-Trace)
== END 2022-03-22 15:57 | disposition home or self-care (01) ==
PROVIDERS: Emergency Provider Emergency Medicine; PCP Internal Medicine
DX: R11.2 Nausea with vomiting, unspecified (principal); R10.9 Unspecified abdominal pain; Z79.899 Other long term (current) drug therapy
CPT/HCPCS: 36415; 74176; 80048; 80076; 81003; 83690; 85025; 96361; 96374; 96375; 99284; J2405

== ENCOUNTER 2022-03-28 13:02 | Emergency (ER) | payer BC, SELFPAY ==
[2022-03-28 13:16] VITALS: BP 148/83; PULSE 67; RESP 18; TEMP 36.6; O2SAT 98; BMI 27.1
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
--- NOTE | 2022-03-28 13:19 | ECG_ITS ---
Test Reason : increased anxiety/depression Blood Pressure : / mmHG Vent. Rate : 058 BPM Atrial Rate : 058 BPM P-R Int : 154 ms QRS Dur : 098 ms QT Int : 446 ms P-R-T Axes : 022 008 035 degrees QTc Int : 437 ms Sinus bradycardia with sinus arrhythmia Otherwise normal ECG No previous ECGs available Referred By: Ina Laird Electronically Signed By:LETI VILLA MD
[2022-03-28 13:59] LABS: MANUAL DIFF FLAG NO
[2022-03-28 14:02] LABS: Appearance Urine Clear; Color Urine Yellow; Glucose Urine UA Negative (Negative); Leukocyte Esterase Urine Negative (Negative); Nitrite Urine Negative (Negative); Specific Gravity - Urine <= 1.005 (1.005-1.025); Urine Blood Negative (Negative); Urine Ketones Negative (Negative); Urine Protein Negative (Neg-Trace)
[2022-03-28 14:03] LABS: Basophils Absolute Auto 0.1 X10*3/uL (0.0-0.2); Basophils Percent Auto 0.5 % (0-2); Eosinophils Percent Auto 0.3 % (0-4); Hemoglobin 15.4 g/dl (12.0-16.0); Imm Gran Abs Auto 0.04 X10*3/uL (0.00-0.03); Imm Gran Pct Auto 0.4 % (0.0-0.4); Lymphocytes Absolute Auto 2.9 X10*3/uL (1.2-4.9); Lymphocytes Percent Auto 30.2 % (20-40); Mean Corpuscular HGB Conc 34.2 g/dl (31.0-35.0); Mean Corpuscular Hemoglobin 33.9 pg (27.0-33.0); Mean Corpuscular Volume 99.1 fL (80.0-98.0); Mean Platelet Volume 10.7 fL (9.4-12.3); Monocytes Absolute Auto 0.6 X10*3/uL (0.1-1.2); Monocytes Percent Auto 6.1 % (2-11); Neutrophils Percent Auto 62.5 % (45-73); Platelet Count 248 X10*3/uL (160-400); Red Blood Count 4.54 X10*6/uL (4.20-5.50); Red Cell Distribution Width 13.4 % (11.0-16.0); White Blood Count 9.7 X10*3/uL (4.8-10.8)
[2022-03-28 14:08] LABS: Prothrombin Time 11.1 SEC (10.0-13.1)
[2022-03-28 14:11] LABS: Amphetamine Screen Urine Not Detected (Not Detect); Barbiturates, Urine Not Detected (Not Detect); Benzodiazepines Screen Urine Not Detected (Not Detect); Cannabinoid Screen Urine POSITIVE (Not Detect); Cocaine Screen Urine Not Detected (Not Detect); Fentanyl, urine Not Detected (Not Detect); Opiate Screen Urine Not Detected (Not Detect); Phencyclidine Screen Urine Not Detected (Not Detect)
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
[2022-03-28 14:18] LABS: Alanine Aminotransferase 9 U/L (0-31); Albumin Level 4.6 g/dL (3.5-5.0); Alkaline Phosphatase 65 U/L (39-117); Anion Gap 13 (12-20); Aspartate Amino Transferase 11 U/L (5-31); Bilirubin Total 0.6 mg/dL (0.0-1.0); Blood Urea Nitrogen 5 mg/dL (9-16); Calcium 9.3 mg/dL (8.4-10.2); Carbon Dioxide 29 mmol/L (22-29); Chloride 101 mmol/L (96-108); Creatinine Clr Calc Pharmacy 98.7; Estimated Glomerular Filt Rate > 60; Glucose Random 91 mg/dL (60-115); Lipase 14 U/L (8-78); Potassium 3.7 mmol/L (3.3-5.1); Sodium 139 mmol/L (135-145); Total Protein 7.3 g/dL (6.5-8.0)
[2022-03-28 14:23] VITALS: BP 148/83; PULSE 67; RESP 18; TEMP 36.6; O2SAT 98
[2022-03-28 14:37] LABS: Ethanol < 10 mg/dL; HCG Quantitative < 2 mIU/mL
--- NOTE | 2022-03-29 14:27 | MHC.CARE ---
Called [facility] and they have received referral will reach out to pt and schedule initial appointment.
== END 2022-03-28 16:10 | disposition home or self-care (01) ==
PROVIDERS: Physician Assistant Medical; Emergency Provider Emergency Medicine Emergency Medical Services; PCP Internal Medicine
DX: F33.1 Major depressive disorder, recurrent, moderate (principal); F41.1 Generalized anxiety disorder; F43.0 Acute stress reaction; Z79.899 Other long term (current) drug therapy
CPT/HCPCS: 36415; 80053; 80307; 81003; 82077; 83690; 83735; 84702; 85025; 85610; 93005; 99284; 99285; S9485